=== PATIENT | male | born 1935 | race Hispanic/Latino ===

== ENCOUNTER 2023-03-21 19:29 | Emergency (ER) | payer MEDICARE ==
[~2023-03-21] VITALS: Ht 162.6 cm; Wt 49.9 kg
[2023-03-21] MEDS ORDERED: ACETAMINOPHEN 500 MG TABLET PO ONE (22:30)
[2023-03-21] MEDS ORDERED: DICL100G32 TP (22:36)
[2023-03-21 22:39] VITALS: BP 150/73
== END 2023-03-21 23:08 | disposition home or self-care (01) ==
LOC: EDH 19:29
DX: S93.402A Sprain of unspecified ligament of left ankle, initial encounter (principal); E11.9 Type 2 diabetes mellitus without complications; E78.00 Pure hypercholesterolemia, unspecified; X50.1XXA Overexertion from prolonged static or awkward postures, initial encounter; Y93.89 Activity, other specified; Y92.89 Other specified places as the place of occurrence of the external cause; Y99.8 Other external cause status
CPT/HCPCS: 73610; 73620